=== PATIENT | male | born 1980 | race African-American/Black ===

== ENCOUNTER 2022-08-10 17:42 | Emergency (ER) | payer OTHER | END 2022-08-10 20:30 | disposition home or self-care (01) | LOC: CSHERS 17:42 | DX: L01.00 Impetigo, unspecified (principal); I10 Essential (primary) hypertension; F17.210 Nicotine dependence, cigarettes, uncomplicated | CPT/HCPCS: 99282 ==

== ENCOUNTER 2022-08-13 09:17 | Emergency (ER) | payer OTHER ==
[2022-08-13 10:41] LABS: Anion Gap 15 mmol/L (10-20); BUN (Urea Nitrogen) 15 mg/dL (8.9-20.6); Calc. Creatinine Clearance 0 mL/min (70-130); Calcium 9.9 mg/dL (7.8-10.44); Carbon Dioxide 24 mmol/L (22-29); Chloride 102 mmol/L (98-107); Estimated GFR 100; Glucose 108 mg/dL (70-105); Potassium 4.4 mmol/L (3.5-5.1); Sodium 137 mmol/L (136-145)
[2022-08-13 10:42] LABS: #Basophils 0.1 10x3/uL (0.0-0.2); #Eosinphils 0.4 10x3/uL (0.0-0.5); #Monocytes 0.8 10x3/uL (0.0-1.1); #Neutrophils 7.4 10x3/uL (1.5-8.4); %Basophils 0.5 % (0.0-2.0); %Eosinophils 3.4 % (0.0-6.0); %Lymphocytes 19.7 % (18.0-47.0); %Monocytes 7.8 % (0.0-10.0); %Neutrophils 68.3 % (40.0-75.0); Hemoglobin 14.2 g/dL (13.5-17.5); Mean Corpuscular HGB CONC 34.1 g/dL (32.0-36.0); Mean Corpuscular Hemoglobin 31.4 pg (27.0-33.0); Mean Corpuscular Volume 92.3 fl (81.2-95.1); Mean Platelet Volume 10.9 fl (7.4-10.4); Platelet Count 236 10x3/uL (150-450); RBC Distribution Width 14.2 % (11.5-14.5); Red Blood Cell (RBC) Count 4.52 10x6/uL (4.32-5.72); White Blood Cell (WBC) Count 10.8 10x3/uL (3.5-10.5)
[2022-08-13] MEDS ORDERED: methylPREDNISolone Sod Succ/PF 125 MG/2 ML VIAL ONE (10:47)
[2022-08-13] MEDS ORDERED: diphenhydrAMINE 50 MG/ML VIAL ONE (10:47)
[2022-08-13] MEDS ORDERED: Famotidine/PF 20 mg/2ml Vial ONE (10:47)
== END 2022-08-13 13:27 | disposition home or self-care (01) ==
LOC: CSHERS 09:17
DX: L01.00 Impetigo, unspecified (principal); L30.9 Dermatitis, unspecified; I10 Essential (primary) hypertension; F17.210 Nicotine dependence, cigarettes, uncomplicated; Z79.899 Other long term (current) drug therapy
CPT/HCPCS: 80048; 85025; 96374; 96375; J1200; J2930; S0028

== ENCOUNTER 2023-03-29 13:12 | Emergency (ER) | payer OTHER ==
[2023-03-29] MEDS ORDERED: diphenhydrAMINE 25 MG CAP ONE (14:17)
[2023-03-29] MEDS ORDERED: predniSONE 20 MG TAB ONE (14:17)
== END 2023-03-29 15:10 | disposition home or self-care (01) ==
LOC: CSHERS 13:12
DX: L30.8 Other specified dermatitis (principal); I10 Essential (primary) hypertension; F17.210 Nicotine dependence, cigarettes, uncomplicated
CPT/HCPCS: 99282; J7512

== ENCOUNTER 2024-06-21 13:51 | Emergency (ER) | payer OTHER ==
[2024-06-21] MEDS ORDERED: levETIRAcetam 500 MG (5 mL) VIAL ONE ×2 (14:08→14:09)
[2024-06-21 14:28] LABS: #Basophils 0.11 10x3/uL (0.0-0.2); #Neutrophils 7.16 10x3/uL (1.5-8.4); %Basophils 0.8 % (0.0-2.0); %Eosinophils 0.8 % (0.0-6.0); %Lymphocytes 33.8 % (18.0-47.0); %Monocytes 8.4 % (0.0-10.0); %Neutrophils 54.9 % (40.0-75.0); Hematocrit 41.3 % (38.8-50.0); Hemoglobin 14.2 g/dL (13.5-17.5); Mean Corpuscular HGB CONC 34.4 g/dL (32.0-36.0); Mean Corpuscular Hemoglobin 33.8 pg (27.0-33.0); Mean Corpuscular Volume 98.3 fL (81.2-95.1); Mean Platelet Volume 10.4 fL (7.4-10.4); Platelet Count 301 10x3/uL (150-450); RBC Distribution Width 14.3 % (11.5-14.5); White Blood Cell (WBC) Count 13.1 10x3/uL (3.5-10.5)
[2024-06-21 14:39] LABS: Acetaminophen Less than 10 mcg/mL (10.0-30.0); Alcohol Less than 10.0 mg/dL (Less than 10); Salicylate Less than 8.0 mg/dL (15.0-30.0)
[2024-06-21 14:41] LABS: ALT (SGPT) 69 U/L (8-55); AST (SGOT) 62 U/L (5-34); Albumin 4.1 g/dL (3.5-5.0); Alkaline Phosphatase 95 U/L (40-110); Anion Gap 28 mmol/L (10-20); BUN (Urea Nitrogen) 11 mg/dL (8.9-20.6); Bilirubin, Total 0.6 mg/dL (0.2-1.2); CK (CPK) 894 U/L (30-200); Calc. Creatinine Clearance 0 mL/min (70-130); Carbon Dioxide 13 mmol/L (22-29); Chloride 100 mmol/L (98-107); Estimated GFR 61; Globulin 3.9 g/dL (2.4-3.5); Glucose 142 mg/dL (70-105); Potassium 4.1 mmol/L (3.5-5.1); Sodium 137 mmol/L (136-145)
[2024-06-21 14:46] LABS: Troponin I Less than 0.010 ng/mL (< 0.028)
[2024-06-21] MEDS ORDERED: Ondansetron PF 4 MG/2 ML Vial ONE ×2 (15:22→17:23)
[2024-06-21] MEDS ORDERED: Morphine 4 MG/ML VIAL ONE ×2 (15:22→17:23)
[2024-06-21 16:31] LABS: Amphetamine Not Detected (NotDetected); Barbiturates Screen Not Detected (NotDetected); Benzodiazepine Screen Not Detected (NotDetected); Cocaine Metabolite Screen Detected (NotDetected); Methadone Not Detected (NotDetected); Methamphetamine Not Detected (NotDetected); Opiate Screen Detected (NotDetected); Oxycodone Screen Not Detected (NotDetected); Phencyclidine (PCP) Not Detected (NotDetected); THC/Cannabinoid Screen Not Detected (NotDetected); Tricyclic Screen Not Detected (NotDetected)
== END 2024-06-21 17:50 | disposition home or self-care (01) ==
LOC: CSHERS 13:51 → EDBD 13:51 → CSHERS 17:50
DX: R56.9 Unspecified convulsions (principal); M95.4 Acquired deformity of chest and rib; M54.50 Low back pain, unspecified; I10 Essential (primary) hypertension; F17.210 Nicotine dependence, cigarettes, uncomplicated
CPT/HCPCS: 36415; 70450; 72125; 72128; 72131; 80053; 80306; 80307; 82550; 84484; 85025; 93005; 96374; 96375; 96376; J1953; J2270; J2405

== ENCOUNTER 2024-12-12 18:49 | Observation (INO) | payer OTHER, SELFPAY ==
[2024-12-12] MEDS ORDERED: levETIRAcetam 500 MG (5 mL) VIAL ONE (19:39)
[2024-12-12 20:23] LABS: #Basophils 0.05 10x3/uL (0.0-0.2); #Eosinophils Less than 0.03 10x3/uL (0.0-0.5); #Neutrophils 11.57 10x3/uL (1.5-8.4); %Basophils 0.3 % (0.0-2.0); %Eosinophils 0.1 % (0.0-6.0); %Lymphocytes 14.5 % (18.0-47.0); %Monocytes 5.5 % (0.0-10.0); Hemoglobin 13.2 g/dL (13.5-17.5); Mean Corpuscular Volume 93.9 fL (81.2-95.1); Mean Platelet Volume 10.1 fL (7.4-10.4); Platelet Count 244 10x3/uL (150-450); RBC Distribution Width 15.6 % (11.5-14.5); Red Blood Cell (RBC) Count 4.26 10x6/uL (4.32-5.72); White Blood Cell (WBC) Count 14.64 10x3/uL (3.5-10.5)
[2024-12-12 20:40] LABS: Acetaminophen Less than 10 mcg/mL (Less than 10); Alcohol Less than 10.0 mg/dL (Less than 10); Lipase 47 U/L (8-78); Magnesium 2.1 mg/dL (1.6-2.6); Salicylate Less than 8.0 mg/dL (Less than 8.0)
[2024-12-12 20:41] LABS: ALT (SGPT) 29 U/L (8-55); AST (SGOT) 35 U/L (5-34); Alkaline Phosphatase 84 U/L (40-110); Anion Gap 18 mmol/L (10-20); BUN (Urea Nitrogen) 10 mg/dL (8.9-20.6); Bilirubin, Total 0.4 mg/dL (0.2-1.2); CK (CPK) 526 U/L (30-200); Calc. Creatinine Clearance 0 mL/min (70-130); Calcium 9.6 mg/dL (7.8-10.44); Carbon Dioxide 21 mmol/L (22-29); Chloride 105 mmol/L (98-107); Estimated GFR 88; Globulin 4.1 g/dL (2.4-3.5); Glucose 174 mg/dL (70-105); Potassium 4.1 mmol/L (3.5-5.1); Protein, Total 8.1 g/dL (6.0-8.3); Sodium 140 mmol/L (136-145)
[2024-12-12 20:47] LABS: Troponin I Less than 0.010 ng/mL (< 0.028)
[2024-12-12 21:07] LABS: Critical Call Chem-Lactate NUR.AEB AT 2106
[2024-12-12] MEDS ORDERED: Calcium Carbonate 500 MG ChewTAB PO PRN (23:03)
[2024-12-12] MEDS ORDERED: Senokot S 8.6-50 MG TAB PO PRN (23:03)
[2024-12-12] MEDS ORDERED: Ondansetron PF 4 MG/2 ML Vial IVP PRN (23:03)
[2024-12-12] MEDS ORDERED: Lorazepam 2 MG/ML VIAL SLOW IVP PRN (23:06)
[2024-12-12 23:37] LABS: Amphetamine Not Detected (NotDetected); Barbiturates Screen Not Detected (NotDetected); Benzodiazepine Screen Not Detected (NotDetected); Cocaine Metabolite Screen Not Detected (NotDetected); Methadone Not Detected (NotDetected); Methamphetamine Not Detected (NotDetected); Opiate Screen Not Detected (NotDetected); Oxycodone Screen Not Detected (NotDetected); Phencyclidine (PCP) Not Detected (NotDetected); THC/Cannabinoid Screen Not Detected (NotDetected); Tricyclic Screen Not Detected (NotDetected)
[2024-12-13 00:16] VITALS: BMI 27.9
[2024-12-13] MEDS: chlordiazePOXIDE HCl 5 MG CAP PO SCH ×2 (00:31→09:25)
[2024-12-13] MEDS: Famotidine/PF 20 mg/2ml Vial SLOW IVP SCH (00:32)
[2024-12-13] MEDS: levETIRAcetam 2,000 MG in Sodium Chloride 0.9% 100 ML IVPB SCH (00:34)
[2024-12-13] MEDS: Acetaminophen 325 MG TAB PO PRN (00:38)
[2024-12-13] MEDS: Magnesium Sulfate/D5W 1 GM/100 ML BAG IVPB SCH (00:39)
[2024-12-13] MEDS: Sodium Chloride 0.9% 1,000 ML IV SCH (00:39)
[2024-12-13] MEDS: Nicotine 14 MG PATCH TD SCH (00:48)
[2024-12-13] MEDS: Multivitamins, Adult 10 ML, Folic Acid 1 MG, Thiamine HCl 100 MG, Admixture Fee 1 EACH ... IV SCH (01:35)
[2024-12-13 04:30] LABS: #Basophils 0.04 10x3/uL (0.0-0.2); #Eosinophils Less than 0.03 10x3/uL (0.0-0.5); #Monocytes 0.77 10x3/uL (0.0-1.1); #Neutrophils 9.58 10x3/uL (1.5-8.4); %Basophils 0.3 % (0.0-2.0); %Monocytes 6.7 % (0.0-10.0); %Neutrophils 83.8 % (40.0-75.0); Hematocrit 36.5 % (38.8-50.0); Hemoglobin 12.6 g/dL (13.5-17.5); Mean Corpuscular HGB CONC 34.5 g/dL (32.0-36.0); Mean Corpuscular Hemoglobin 31.7 pg (27.0-33.0); Mean Corpuscular Volume 91.9 fL (81.2-95.1); Mean Platelet Volume 10.2 fL (7.4-10.4); Platelet Count 225 10x3/uL (150-450); RBC Distribution Width 15.5 % (11.5-14.5); Red Blood Cell (RBC) Count 3.97 10x6/uL (4.32-5.72); White Blood Cell (WBC) Count 11.44 10x3/uL (3.5-10.5)
[2024-12-13 04:52] LABS: ALT (SGPT) 29 U/L (8-55); AST (SGOT) 36 U/L (5-34); Albumin 3.8 g/dL (3.5-5.0); Alkaline Phosphatase 76 U/L (40-110); Anion Gap 13 mmol/L (10-20); BUN (Urea Nitrogen) 9 mg/dL (8.9-20.6); Bilirubin, Total 0.6 mg/dL (0.2-1.2); CK (CPK) 1415 U/L (30-200); Calc. Creatinine Clearance 143 mL/min (70-130); Calcium 9.2 mg/dL (7.8-10.44); Carbon Dioxide 23 mmol/L (22-29); Chloride 104 mmol/L (98-107); Estimated GFR 110; Globulin 3.7 g/dL (2.4-3.5); Glucose 125 mg/dL (70-105); Magnesium 2.4 mg/dL (1.6-2.6); Potassium 3.8 mmol/L (3.5-5.1); Protein, Total 7.5 g/dL (6.0-8.3); Sodium 136 mmol/L (136-145)
[2024-12-13] MEDS ORDERED: ADMIXTURE FEE IVPB SCH (09:00)
[2024-12-13] MEDS ORDERED: NS IVPB SCH (09:00)
[2024-12-13] MEDS ORDERED: LEVETIRACETAM IVPB SCH (09:00)
[2024-12-13] MEDS: levETIRAcetam 500 MG (5 mL) VIAL SLOW IVP SCH (09:24)
[2024-12-13] MEDS: Folic Acid 1 MG TAB PO SCH (09:25)
[2024-12-13] MEDS: Multivitamin W/ Minerals 1 TAB PO SCH (09:25)
[2024-12-13] MEDS: Thiamine 100 MG TAB PO SCH (09:25)
[2024-12-14] MEDS: Multivitamins, Adult 10 ML, Folic Acid 1 MG, Thiamine HCl 100 MG, Admixture Fee 1 EACH ... IV SCH (01:59)
[2024-12-14 08:24] LABS: Anion Gap 13 mmol/L (10-20); BUN (Urea Nitrogen) 7 mg/dL (8.9-20.6); CK (CPK) 1246 U/L (30-200); Calc. Creatinine Clearance 143 mL/min (70-130); Calcium 9.1 mg/dL (7.8-10.44); Carbon Dioxide 24 mmol/L (22-29); Chloride 104 mmol/L (98-107); Estimated GFR 110; Glucose 99 mg/dL (70-105); Potassium 3.7 mmol/L (3.5-5.1); Sodium 137 mmol/L (136-145)
[2024-12-14 09:13] VITALS: BP 150/98; TEMP 98.7
== END 2024-12-14 10:08 | disposition home or self-care (01) ==
LOC: CSHERS 18:49 → CSHTELE 23:03
PROVIDERS: ADMIT Student in an Organized Health Care Education/Training Program; ATTEND Student in an Organized Health Care Education/Training Program
DX: G40.909 Epilepsy, unspecified, not intractable, without status epilepticus (principal); R94.31 Abnormal electrocardiogram [ECG] [EKG]; E87.20 Acidosis, unspecified; M62.82 Rhabdomyolysis; F17.210 Nicotine dependence, cigarettes, uncomplicated; F10.10 Alcohol abuse, uncomplicated; Y90.0 Blood alcohol level of less than 20 mg/100 ml; Z79.899 Other long term (current) drug therapy
CPT/HCPCS: 36415; 71045; 80048; 80053; 80306; 80307; 82550; 83605; 83690; 83735; 84484; 85025; 93005; 96365; 96375; 96376; G0378; J1953; J3411; J3475; J3490; J7030; J7042

== ENCOUNTER 2025-08-29 03:40 | Emergency (ER) | payer MEDICAID, OTHER ==
[2025-08-29] MEDS ORDERED: levETIRAcetam 500 MG (5 mL) VIAL ONE (04:00)
[2025-08-29 04:03] LABS: #Basophils 0.06 10x3/uL (0.0-0.2); #Eosinophils 0.11 10x3/uL (0.0-0.5); #Monocytes 1.20 10x3/uL (0.0-1.1); #Neutrophils 4.50 10x3/uL (1.5-8.4); %Basophils 0.6 % (0.0-2.0); %Eosinophils 1.1 % (0.0-6.0); %Lymphocytes 41.6 % (18.0-47.0); %Monocytes 11.9 % (0.0-10.0); %Neutrophils 44.6 % (40.0-75.0); Hematocrit 40.9 % (38.8-50.0); Hemoglobin 13.6 g/dL (13.5-17.5); Mean Corpuscular Hemoglobin 31.4 pg (27.0-33.0); Mean Corpuscular Volume 94.5 fL (81.2-95.1); Platelet Count 284 10x3/uL (150-450); Red Blood Cell (RBC) Count 4.33 10x6/uL (4.32-5.72); White Blood Cell (WBC) Count 10.09 10x3/uL (3.5-10.5)
[2025-08-29 04:17] LABS: ALT (SGPT) 36 U/L (Less than 45); AST (SGOT) 45 U/L (11-34); Albumin 4.4 g/dL (3.1-4.5); Alkaline Phosphatase 81 U/L (40-110); Anion Gap 25 mmol/L (10-20); BUN (Urea Nitrogen) 9 mg/dL (8.9-20.6); Bilirubin, Total 0.3 mg/dL (0.3-1.2); Calc. Creatinine Clearance 0 mL/min (70-130); Calcium 9.7 mg/dL (7.8-10.44); Carbon Dioxide 14 mmol/L (22-29); Chloride 101 mmol/L (98-107); Globulin 4.2 g/dL (2.4-3.5); Glucose 146 mg/dL (70-105); Potassium 3.4 mmol/L (3.5-5.1); Sodium 137 mmol/L (136-145)
== END 2025-08-29 05:00 | disposition home or self-care (01) ==
LOC: CSHERS 03:40
DX: G40.909 Epilepsy, unspecified, not intractable, without status epilepticus (principal); E87.6 Hypokalemia; Z91.148 Patient's other noncompliance with medication regimen for other reason; I10 Essential (primary) hypertension; Z79.899 Other long term (current) drug therapy
CPT/HCPCS: 70450; 80053; 85025; 93005; 96374; 96375; J1953; J3360

== ENCOUNTER 2025-10-17 04:10 | Emergency (ER) | payer MEDICAID ==
[2025-10-17] MEDS ORDERED: levETIRAcetam 500 MG (5 mL) VIAL ONE (04:24)
[2025-10-17 04:41] LABS: #Basophils 0.04 10x3/uL (0.0-0.2); #Eosinophils Less than 0.03 10x3/uL (0.0-0.5); #Monocytes 1.22 10x3/uL (0.0-1.1); #Neutrophils 5.42 10x3/uL (1.5-8.4); %Basophils 0.4 % (0.0-2.0); %Eosinophils 0.1 % (0.0-6.0); %Lymphocytes 27.7 % (18.0-47.0); %Monocytes 13.1 % (0.0-10.0); %Neutrophils 58.5 % (40.0-75.0); Hematocrit 40.0 % (38.8-50.0); Hemoglobin 13.8 g/dL (13.5-17.5); Mean Corpuscular Hemoglobin 31.7 pg (27.0-33.0); Mean Corpuscular Volume 92.0 fL (81.2-95.1); Platelet Count 241 10x3/uL (150-450); Red Blood Cell (RBC) Count 4.35 10x6/uL (4.32-5.72); White Blood Cell (WBC) Count 9.28 10x3/uL (3.5-10.5)
[2025-10-17 04:58] LABS: ALT (SGPT) 30 U/L (Less than 45); AST (SGOT) 45 U/L (11-34); Albumin 4.0 g/dL (3.1-4.5); Alkaline Phosphatase 73 U/L (40-110); Anion Gap 22 mmol/L (10-20); BUN (Urea Nitrogen) 9 mg/dL (8.9-20.6); Bilirubin, Total 0.5 mg/dL (0.3-1.2); Calc. Creatinine Clearance 0 mL/min (70-130); Calcium 8.8 mg/dL (7.8-10.44); Carbon Dioxide 17 mmol/L (22-29); Chloride 101 mmol/L (98-107); Globulin 3.9 g/dL (2.4-3.5); Glucose 136 mg/dL (70-105); Potassium 3.4 mmol/L (3.5-5.1); Sodium 137 mmol/L (136-145)
== END 2025-10-17 05:25 | disposition home or self-care (01) ==
LOC: CSHERS 04:10
DX: R56.9 Unspecified convulsions (principal); R11.0 Nausea; I10 Essential (primary) hypertension; Z79.899 Other long term (current) drug therapy
CPT/HCPCS: 80053; 85025; 93005; 96374; J1953